=== PATIENT | male | born 1985 | race Caucasian/White ===

== ENCOUNTER 2017-11-23 07:16 | Emergency (ER) | payer MEDICARE, MEDICAID ==
[~2017-11-23] VITALS: Ht 170.2 cm; Wt 75.0 kg
[~2017-11-23 07:16] MED LIST: ALBU8HFA PO; DIPH25CA83 PO; LORA-269 PO; OXCA600T5 PO
[2017-11-23 07:25] VITALS: BP 111/74
[2017-11-23 08:29] LABS: BASOPHILS % (AUTO) 0.3 % (0-1); EOSINOPHILS # (AUTO) 0.2 X10'3 (0-0.9); EOSINOPHILS % (AUTO) 1.4 % (0-6); HEMATOCRIT 37.6 % (42.0-52.0); HEMOGLOBIN 12.8 g/dl (14.0-17.9); LYMPHOCYTES # (AUTO) 2.1 X10'3 (1.1-4.8); LYMPHOCYTES % (AUTO) 17.7 % (21-51); MEAN CORPUSCULAR HEMOGLOBIN 29.6 PG (27.0-31.0); MEAN CORPUSCULAR VOLUME 87.2 FL (78-98); MEAN PLATELET VOLUME 7.2 FL (7.4-10.4); MONOCYTES # (AUTO) 0.7 X10'3 (0-0.9); MONOCYTES % (AUTO) 6.3 % (2-12); NEUTROPHILS # (AUTO) 8.7 X10'3 (1.8-7.7); NEUTROPHILS % (AUTO) 74.3 % (42-75); PLATELET COUNT 406 X10'3 (140-440); RED BLOOD COUNT 4.31 X10'6 (4.70-6.10); RED CELL DISTRIBUTION WIDTH 14.7 % (11.5-14.5); WHITE BLOOD COUNT 11.8 X10'3 (4.5-11.0)
[2017-11-23 08:43] LABS: ALANINE AMINOTRANSFERASE 63 U/L (12-78); ALBUMIN 3.4 G/DL (3.4-5.0); ALKALINE PHOSPHATASE 62 IU/L (46-116); ANION GAP 4 (8-16); ASPARTATE AMINO TRANSFERASE 34 U/L (10-37); BILIRUBIN,TOTAL 0.6 MG/DL (0.1-1.0); BLOOD UREA NITROGEN 22 MG/DL (7-18); BUN/CREATININE RATIO 22.2 (5.4-32.0); CALCIUM 8.4 MG/DL (8.5-10.1); CHLORIDE 110 MMOL/L (99-107); CREATININE 0.99 MG/DL (0.60-1.10); GLUCOSE 89 MG/DL (70-104); POTASSIUM 3.6 MMOL/L (3.5-5.1); SODIUM 142 MMOL/L (135-145); TOTAL CARBON DIOXIDE 28.4 MMOL/L (24-32); TOTAL PROTEIN 6.8 G/DL (6.4-8.2); eGFR 87 ML/MIN
[2017-11-23 08:52] LABS: ETHANOL < 0.010 GM/DL (0.0-0.010)
== END 2017-11-23 08:38 | disposition left against medical advice (07) ==
LOC: ER 07:16
DX: F99 Mental disorder, not otherwise specified (principal); F20.9 Schizophrenia, unspecified; F41.9 Anxiety disorder, unspecified; F29 Unspecified psychosis not due to a substance or known physiological condition; R45.851 Suicidal ideations; J45.909 Unspecified asthma, uncomplicated; F15.10 Other stimulant abuse, uncomplicated; Z56.0 Unemployment, unspecified; Z59.0 Homelessness; Z79.899 Other long term (current) drug therapy
CPT/HCPCS: 36415; 80053; 80320; 84443; 85025; 99284

== ENCOUNTER 2018-01-16 08:02 | Emergency (ER) | payer MEDICARE, MEDICAID ==
[~2018-01-16] VITALS: Ht 1703 cm; Wt 77.3 kg
[2018-01-16] MEDS ORDERED: LORazepam 2 mg/ml vial IM ONE (08:05)
[2018-01-16] MEDS ORDERED: haloperidol lactate 5mg/ml inj IM ONE (08:05)
[2018-01-16] MEDS ORDERED: diphenhydrAMINE 50 mg/ml inj IM ONE (08:05)
[2018-01-16 08:32] LABS: BASOPHILS % (AUTO) 0.2 % (0-1); EOSINOPHILS # (AUTO) 0.5 X10'3 (0-0.9); EOSINOPHILS % (AUTO) 3.9 % (0-6); HEMATOCRIT 39.3 % (42.0-52.0); HEMOGLOBIN 13.5 g/dl (14.0-17.9); LYMPHOCYTES # (AUTO) 3.1 X10'3 (1.1-4.8); LYMPHOCYTES % (AUTO) 25.8 % (21-51); MEAN CORPUSCULAR HEMOGLOBIN 29.8 PG (27.0-31.0); MEAN CORPUSCULAR HGB CONC 34.5 % (33.0-36.5); MEAN CORPUSCULAR VOLUME 86.4 FL (78-98); MEAN PLATELET VOLUME 6.7 FL (7.4-10.4); MONOCYTES # (AUTO) 0.9 X10'3 (0-0.9); MONOCYTES % (AUTO) 7.5 % (2-12); NEUTROPHILS # (AUTO) 7.6 X10'3 (1.8-7.7); NEUTROPHILS % (AUTO) 62.6 % (42-75); PLATELET COUNT 653 X10'3 (140-440); RED BLOOD COUNT 4.55 X10'6 (4.70-6.10); RED CELL DISTRIBUTION WIDTH 13.9 % (11.5-14.5); WHITE BLOOD COUNT 12.2 X10'3 (4.5-11.0)
[2018-01-16 08:47] LABS: ALANINE AMINOTRANSFERASE 42 U/L (12-78); ALBUMIN/GLOBULIN RATIO 0.7 (1.1-1.5); ALKALINE PHOSPHATASE 72 IU/L (46-116); ANION GAP 7 (8-16); ASPARTATE AMINO TRANSFERASE 22 U/L (10-37); BILIRUBIN,TOTAL 0.3 MG/DL (0.1-1.0); BLOOD UREA NITROGEN 14 MG/DL (7-18); CALCIUM 8.5 MG/DL (8.5-10.1); CHLORIDE 108 MMOL/L (99-107); CREATININE 1.08 MG/DL (0.60-1.10); GLUCOSE 97 MG/DL (70-104); POTASSIUM 3.6 MMOL/L (3.5-5.1); SODIUM 142 MMOL/L (135-145); TOTAL CARBON DIOXIDE 27.1 MMOL/L (24-32); TOTAL PROTEIN 7.1 G/DL (6.4-8.2); eGFR 78 ML/MIN
[2018-01-16 08:56] LABS: ETHANOL < 0.010 GM/DL (0.0-0.010)
[2018-01-16] MEDS ORDERED: QUET200T3 PO (09:17)
[2018-01-16] MEDS ORDERED: QUET50TA15 PO (09:17)
[2018-01-16] MEDS ORDERED: diphenhydrAMINE 25mg capsule PO PRN (09:25)
[2018-01-16] MEDS ORDERED: albuterol 2.5 MG/3 ML nebule NEB PRN (09:35)
[2018-01-16] MEDS: oxcarbazepine 150mg tablet PO SCH ×2 (10:00→21:22)
[2018-01-16] MEDS: QUETIAPINE 50 MG TAB.SR.24H PO SCH (10:00)
[2018-01-16 10:15] LABS: URINE AMPHETAMINE SCREEN POSITIVE (Neg); URINE BARBITUATE SCREEN NEGATIVE (Neg); URINE BENZODIAZEPINES SCREEN NEGATIVE (Neg); URINE CANNABINOID SCREEN NEGATIVE (Neg); URINE COCAINE SCREEN NEGATIVE (Neg); URINE METHADONE SCREEN NEGATIVE (Neg); URINE OPIATE SCREEN NEGATIVE (Neg); URINE PHENCYCLIDINE SCREEN NEGATIVE (Neg)
[2018-01-16 17:31] LABS: CLARITY,URINE SLIGHTLY CLOUDY (Clear); COLOR,URINE YELLOW (Yellow); GLUCOSE, URINE NEGATIVE (Neg); KETONES,URINE NEGATIVE (Neg); LEUKOCYTE ESTERASE ,URINE NEGATIVE (Neg); NITRITES, URINE NEGATIVE (Neg); OCCULT BLOOD,URINE NEGATIVE (Neg); PH,URINE 6.5 (4.8-8.0); PROTEIN,URINE TRACE mg/dl (Neg); UROBILINOGEN,URINE 0.2 E.U/dL (0.2-1.0)
[2018-01-16 17:42] LABS: UA COLLECTION TYPE VOIDED
[2018-01-16 17:45] LABS: BACTERIA,URINE NONE SEEN /HPF (Neg); MUCUS STRANDS MANY /LPF (Neg); RBC,URINE NONE SEEN /HPF (0-2); SPERM MANY /HPF (NEGATIVE); SQUAMOUS EPITHELIAL CELL,UR FEW /LPF (FEW)
[2018-01-16] MEDS: QUETIAPINE 200 MG TAB.SR.24H PO SCH (21:22)
[2018-01-16] MEDS: LORazepam 1 MG tablet PO PRN (21:22)
[2018-01-17] MEDS ORDERED: OLANZapine 2.5MG tablet PO ONE (06:45)
[2018-01-17] MEDS: oxcarbazepine 150mg tablet PO SCH ×2 (08:00→20:35)
[2018-01-17] MEDS: LORazepam 1 MG tablet PO PRN (11:30)
[2018-01-17] MEDS: QUETIAPINE 50 MG TAB.SR.24H PO SCH (11:51)
[2018-01-17] MEDS: QUETIAPINE 200 MG TAB.SR.24H PO SCH (20:35)
[2018-01-18] MEDS: oxcarbazepine 150mg tablet PO SCH (08:00)
[2018-01-18] MEDS: QUETIAPINE 50 MG TAB.SR.24H PO SCH (08:00)
[2018-01-18 18:02] VITALS: BP 128/71
== END 2018-01-18 18:41 ==
LOC: ER 08:02
DX: F31.9 Bipolar disorder, unspecified (principal); F20.9 Schizophrenia, unspecified; F15.10 Other stimulant abuse, uncomplicated; J45.909 Unspecified asthma, uncomplicated; F41.9 Anxiety disorder, unspecified
CPT/HCPCS: 36415; 80053; 80305; 80320; 81001; 84443; 85025; 96372; 99285; J1200; J1630; J2060; Q0163

== ENCOUNTER 2018-02-02 02:51 | Emergency (ER) | payer MEDICARE, MEDICAID ==
[~2018-02-02 02:51] MED LIST changes: +QUET200T3 PO; +QUET50TA15 PO
== END 2018-02-02 04:12 | disposition left against medical advice (07) ==
LOC: ER 02:52
DX: R11.10 Vomiting, unspecified (principal); F41.9 Anxiety disorder, unspecified; Z53.21 Procedure and treatment not carried out due to patient leaving prior to being seen by health care provider

== ENCOUNTER 2023-06-17 04:13 | Emergency (ER) | payer MEDICARE, MEDICAID ==
[~2023-06-17] VITALS: Ht 180.3 cm; Wt 78.2 kg
[~2023-06-17 04:13] MED LIST changes: -ALBU8HFA PO; +CLON0.1T2 PO; -DIPH25CA83 PO; -LORA-269 PO; -OXCA600T5 PO; -QUET200T3 PO; -QUET50TA15 PO
[2023-06-17 04:21] VITALS: PULSE 59; RESP 18; TEMP 98.2; O2SAT 98
== END 2023-06-17 05:46 | disposition left against medical advice (07) ==
LOC: ER 04:14
DX: R46.2 Strange and inexplicable behavior (principal); Z53.21 Procedure and treatment not carried out due to patient leaving prior to being seen by health care provider
CPT/HCPCS: 99281

== ENCOUNTER 2023-06-20 09:06 | Emergency (ER) | payer MEDICARE, MEDICAID ==
[2023-06-21] MEDS ORDERED: ZIPR20CA12 PO (11:51)
== END 2023-06-20 11:14 | disposition left against medical advice (07) ==
LOC: ER 09:07
DX: Z04.6 Encounter for general psychiatric examination, requested by authority (principal); Z53.21 Procedure and treatment not carried out due to patient leaving prior to being seen by health care provider

== ENCOUNTER 2023-06-21 04:32 | Emergency (ER) | payer MEDICARE, MEDICAID ==
[~2023-06-21] VITALS: Ht 180.3 cm; Wt 72.7 kg
[2023-06-21] MEDS: diphenhydrAMINE 50 mg/ml inj IM ONE (05:46)
[2023-06-21] MEDS: LORazepam 2 mg/ml vial IM ONE (05:46)
[2023-06-21] MEDS: haloperidol lactate 5mg/ml inj IM ONE (05:46)
[2023-06-21 06:13] LABS: ALANINE AMINOTRANSFERASE 132 U/L (12-78); ALBUMIN 3.6 G/DL (3.4-5.0); ALBUMIN/GLOBULIN RATIO 1.1 (1.1-1.5); ALKALINE PHOSPHATASE 49 IU/L (46-116); ANION GAP 13 (8-16); ASPARTATE AMINO TRANSFERASE 70 U/L (10-37); BILIRUBIN,TOTAL 1.2 MG/DL (0.1-1.0); BLOOD UREA NITROGEN 18 MG/DL (7-18); BUN/CREATININE RATIO 20.7 (10.0-20.0); CALCIUM 8.5 MG/DL (8.5-10.1); CHLORIDE 105 MMOL/L (99-107); CREATININE 0.87 MG/DL (0.60-1.10); GLUCOSE 77 MG/DL (70-104); POTASSIUM 3.7 MMOL/L (3.5-5.1); SODIUM 141 MMOL/L (135-145); TOTAL CARBON DIOXIDE 23.4 MMOL/L (24-32); TOTAL PROTEIN 6.8 G/DL (6.4-8.2); eCRCL 117 ML/MIN; eGFR > 90 ML/MIN
[2023-06-21 06:17] LABS: BASOPHILS % (AUTO) 0.3 % (0-1); EOSINOPHILS % (AUTO) 0.2 % (0-6); HEMATOCRIT 38.7 % (42.0-52.0); HEMOGLOBIN 13.1 g/dl (14.0-17.9); LYMPHOCYTES # (AUTO) 1.1 X10'3 (1.1-4.8); MEAN CORPUSCULAR HEMOGLOBIN 29.1 PG (27.0-31.0); MEAN CORPUSCULAR HGB CONC 33.8 g/dL (33.0-36.5); MEAN CORPUSCULAR VOLUME 86.2 FL (78-98); MEAN PLATELET VOLUME 7.8 FL (7.4-10.4); MONOCYTES # (AUTO) 0.7 X10'3 (0-0.9); MONOCYTES % (AUTO) 7.2 % (2-12); NEUTROPHILS # (AUTO) 8.4 X10'3 (1.8-7.7); NEUTROPHILS % (AUTO) 81.3 % (42-75); PLATELET COUNT 514 X10'3 (140-440); RED BLOOD COUNT 4.49 X10'6 (4.70-6.10); RED CELL DISTRIBUTION WIDTH 14.1 % (11.5-14.5); WHITE BLOOD COUNT 10.3 X10'3 (4.5-11.0)
[2023-06-21 06:21] LABS: ETHANOL < 10 MG/DL (<10); THYROID STIMULATING HORMONE 0.67 ulU/ml (0.34-4.50)
[2023-06-21] MEDS: ziprasidone IM 20mg inj **IM only IM ONE (09:01)
[2023-06-21] MEDS ORDERED: ZIPR20CA12 PO (11:51)
[2023-06-21 17:59] LABS: BILIRUBIN,URINE SMALL (Neg); CLARITY,URINE CLEAR (Clear); COLOR,URINE YELLOW (Yellow); GLUCOSE, URINE NEGATIVE (Neg); KETONES,URINE 40 mg/dl (Neg); LEUKOCYTE ESTERASE ,URINE NEGATIVE (Neg); OCCULT BLOOD,URINE NEGATIVE (Neg); PROTEIN,URINE NEGATIVE (Neg); UROBILINOGEN,URINE 0.2 E.U/dL (0.2-1.0)
[2023-06-21 18:04] LABS: UA COLLECTION TYPE VOIDED
[2023-06-21 18:06] LABS: NITRITES, URINE NEGATIVE (Neg)
[2023-06-21 18:19] LABS: URINE AMPHETAMINE SCREEN POSITIVE (Neg); URINE BARBITUATE SCREEN NEGATIVE (Neg); URINE BENZODIAZEPINES SCREEN NEGATIVE (Neg); URINE CANNABINOID SCREEN POSITIVE (Neg); URINE COCAINE SCREEN NEGATIVE (Neg); URINE METHADONE SCREEN NEGATIVE (Neg); URINE OPIATE SCREEN NEGATIVE (Neg); URINE PHENCYCLIDINE SCREEN NEGATIVE (Neg)
[2023-06-21] MEDS: ziprasidone 20mg capsule PO SCH (20:00)
[2023-06-21] MEDS: cloNIDine 0.1 mg tablet PO SCH (21:00)
[2023-06-22] MEDS: LORazepam 1 MG tablet PO ONE (01:36)
[2023-06-22 06:19] VITALS: PULSE 108; TEMP 97.8
[2023-06-22 13:42] VITALS: BP 118/68; RESP 16; O2SAT 97
== END 2023-06-22 13:50 | disposition still patient (30) ==
LOC: ER 04:33
DX: F29 Unspecified psychosis not due to a substance or known physiological condition (principal); Z20.822 Contact with and (suspected) exposure to COVID-19; J45.909 Unspecified asthma, uncomplicated; F15.90 Other stimulant use, unspecified, uncomplicated; Z79.899 Other long term (current) drug therapy
CPT/HCPCS: 36415; 80053; 80305; 80320; 81003; 84443; 85025; 87811; 96372; 99285; J1200; J1630; J2060; J3486

== ENCOUNTER 2023-07-03 01:26 | Emergency (ER) | payer MEDICARE, MEDICAID ==
[~2023-07-03] VITALS: Ht 172.7 cm; Wt 72.7 kg
[~2023-07-03 01:26] MED LIST changes: +ZIPR20CA12 PO
[2023-07-03] MEDS: olanzapine 10mg tablet PO STA (01:59)
[2023-07-03] MEDS: diphenhydrAMINE 50 mg/ml inj IM ONE (03:33)
[2023-07-03] MEDS: LORazepam 2 mg/ml vial IM ONE (03:33)
[2023-07-03 04:20] LABS: URINE AMPHETAMINE SCREEN POSITIVE (Neg); URINE BARBITUATE SCREEN NEGATIVE (Neg); URINE BENZODIAZEPINES SCREEN NEGATIVE (Neg); URINE CANNABINOID SCREEN NEGATIVE (Neg); URINE COCAINE SCREEN NEGATIVE (Neg); URINE METHADONE SCREEN NEGATIVE (Neg); URINE OPIATE SCREEN NEGATIVE (Neg); URINE PHENCYCLIDINE SCREEN NEGATIVE (Neg)
[2023-07-03 04:31] LABS: BASOPHILS % (AUTO) 0.2 % (0-1); EOSINOPHILS % (AUTO) 0.2 % (0-6); HEMATOCRIT 39.6 % (42.0-52.0); HEMOGLOBIN 13.2 g/dl (14.0-17.9); LYMPHOCYTES % (AUTO) 9.5 % (21-51); MEAN CORPUSCULAR HEMOGLOBIN 28.9 PG (27.0-31.0); MEAN CORPUSCULAR HGB CONC 33.3 g/dL (33.0-36.5); MEAN CORPUSCULAR VOLUME 86.9 FL (78-98); MEAN PLATELET VOLUME 7.3 FL (7.4-10.4); MONOCYTES # (AUTO) 0.9 X10'3 (0-0.9); MONOCYTES % (AUTO) 7.8 % (2-12); NEUTROPHILS % (AUTO) 82.3 % (42-75); PLATELET COUNT 367 X10'3 (140-440); RED BLOOD COUNT 4.55 X10'6 (4.70-6.10); RED CELL DISTRIBUTION WIDTH 14.4 % (11.5-14.5); WHITE BLOOD COUNT 10.9 X10'3 (4.5-11.0)
[2023-07-03 04:46] LABS: ALBUMIN 3.2 G/DL (3.4-5.0); ANION GAP 13 (8-16); BLOOD UREA NITROGEN 11 MG/DL (7-18); BUN/CREATININE RATIO 9.3 (10.0-20.0); CALCIUM 8.3 MG/DL (8.5-10.1); CHLORIDE 103 MMOL/L (99-107); CREATININE 1.18 MG/DL (0.60-1.10); GLUCOSE 97 MG/DL (70-104); SODIUM 139 MMOL/L (135-145); TOTAL CARBON DIOXIDE 23.3 MMOL/L (24-32); eCRCL 81 ML/MIN; eGFR 69 ML/MIN
[2023-07-03 04:49] LABS: ETHANOL < 10 MG/DL (<10)
[2023-07-03] MEDS: potassium Cl 20 mEq SR tablet PO STA (07:12)
[2023-07-03] MEDS: ziprasidone 20mg capsule PO SCH (09:46)
[2023-07-03 15:51] LABS: BILIRUBIN,URINE NEGATIVE (Neg); CLARITY,URINE CLOUDY (Clear); COLOR,URINE YELLOW (Yellow); GLUCOSE, URINE NEGATIVE (Neg); KETONES,URINE TRACE mg/dl (Neg); LEUKOCYTE ESTERASE ,URINE NEGATIVE (Neg); NITRITES, URINE NEGATIVE (Neg); OCCULT BLOOD,URINE TRACE-INTACT (Neg); PROTEIN,URINE 100 mg/dl (Neg); UROBILINOGEN,URINE 0.2 E.U/dL (0.2-1.0)
[2023-07-03 16:02] LABS: UA COLLECTION TYPE URINAL
[2023-07-03 16:03] LABS: HYALINE CASTS >30 /LPF (NEGATIVE); MUCUS STRANDS MODERATE /LPF (Neg)
[2023-07-03 16:04] LABS: SPERM MANY /HPF (NEGATIVE)
[2023-07-03 16:06] LABS: WBC,URINE 20-30 /HPF (0-4)
[2023-07-03 16:08] LABS: RBC,URINE 20-50 /HPF (0-2)
[2023-07-03 16:09] LABS: BACTERIA,URINE 1+ /HPF (Neg); SQUAMOUS EPITHELIAL CELL,UR FEW /LPF (FEW)
[2023-07-03] MEDS: cloNIDine 0.1 mg tablet PO SCH (20:34)
[2023-07-03] MEDS ORDERED: OLANZapine 5mg rapidly disint. tablet PO ONE (21:25)
[2023-07-03] MEDS: OLANZapine 5mg rapidly disint. tablet PO ONE (21:46)
[2023-07-04] MEDS: LORazepam 1 MG tablet PO PRN (07:41)
[2023-07-06 05:54] VITALS: BP 110/63; PULSE 74; TEMP 97.3; O2SAT 99
[2023-07-06 08:00] VITALS: RESP 16
[2023-07-06] MEDS: OLANZAPINE 5 MG TABLET PO SCH (08:09)
[2023-07-06] MEDS ORDERED: OLAN5TAB3 PO (13:15)
== END 2023-07-06 13:55 | disposition home or self-care (01) ==
LOC: ER 01:27
DX: F15.10 Other stimulant abuse, uncomplicated (principal); Z20.822 Contact with and (suspected) exposure to COVID-19; E87.6 Hypokalemia
CPT/HCPCS: 36415; 80048; 80305; 80320; 81001; 84132; 85025; 87811; 96372; 99285; J1200; J2060

== ENCOUNTER 2023-07-07 03:53 | Emergency (ER) | payer MEDICARE, MEDICAID ==
[~2023-07-07] VITALS: Ht 180.3 cm; Wt 65.0 kg
[~2023-07-07 03:53] MED LIST changes: +OLAN5TAB3 PO
[2023-07-07 04:05] VITALS: BP 123/71; PULSE 115; RESP 18; TEMP 98.4; O2SAT 99
[2023-07-07] MEDS: LORazepam 1 MG tablet PO ONE (05:01)
[2023-07-07] MEDS ORDERED: olanzapine 10mg tablet PO SCH (08:00)
== END 2023-07-07 05:03 | disposition home or self-care (01) ==
LOC: ER 03:53
DX: F20.9 Schizophrenia, unspecified (principal); Z76.0 Encounter for issue of repeat prescription; F31.9 Bipolar disorder, unspecified; J45.909 Unspecified asthma, uncomplicated; F15.10 Other stimulant abuse, uncomplicated; Z59.00 Homelessness unspecified; Z88.8 Allergy status to other drugs, medicaments and biological substances; Z79.899 Other long term (current) drug therapy
CPT/HCPCS: 99283

== ENCOUNTER 2023-07-13 08:38 | Emergency (ER) | payer MEDICARE, MEDICAID ==
[~2023-07-13] VITALS: Ht 182.9 cm; Wt 65.2 kg
== END 2023-07-13 12:04 | disposition home or self-care (01) ==
LOC: ER 08:39
DX: M79.672 Pain in left foot (principal); M79.671 Pain in right foot; J45.909 Unspecified asthma, uncomplicated; F41.9 Anxiety disorder, unspecified; F20.9 Schizophrenia, unspecified; F15.90 Other stimulant use, unspecified, uncomplicated; Z88.8 Allergy status to other drugs, medicaments and biological substances; Z79.899 Other long term (current) drug therapy; Z59.00 Homelessness unspecified; Z56.0 Unemployment, unspecified; Z72.89 Other problems related to lifestyle
CPT/HCPCS: 73630; 99283

== ENCOUNTER 2023-07-13 21:36 | Emergency (ER) | payer MEDICARE, MEDICAID ==
[~2023-07-13] VITALS: Ht 177.8 cm; Wt 68.2 kg
[2023-07-13 21:46] VITALS: BP 123/65; PULSE 109; RESP 16; O2SAT 97
== END 2023-07-13 22:29 | disposition home or self-care (01) ==
LOC: ER 21:37
DX: S00.83XA Contusion of other part of head, initial encounter (principal); F15.10 Other stimulant abuse, uncomplicated; J45.909 Unspecified asthma, uncomplicated; F41.9 Anxiety disorder, unspecified; F20.9 Schizophrenia, unspecified; Z59.00 Homelessness unspecified; Z56.0 Unemployment, unspecified; Z79.899 Other long term (current) drug therapy; Z88.8 Allergy status to other drugs, medicaments and biological substances; W19.XXXA Unspecified fall, initial encounter; Y93.89 Activity, other specified; Y92.89 Other specified places as the place of occurrence of the external cause; Y99.8 Other external cause status
CPT/HCPCS: 99283

== ENCOUNTER 2023-08-01 00:43 | Emergency (ER) | payer MEDICARE, MEDICAID ==
[~2023-08-01] VITALS: Ht 182.9 cm; Wt 64.5 kg
[2023-08-01 00:48] VITALS: BP 115/71; PULSE 109; RESP 16; TEMP 98; O2SAT 96
== END 2023-08-01 02:29 | disposition left against medical advice (07) ==
LOC: ER 00:44
DX: G47.00 Insomnia, unspecified (principal); F41.9 Anxiety disorder, unspecified; Z53.21 Procedure and treatment not carried out due to patient leaving prior to being seen by health care provider
CPT/HCPCS: 99281

== ENCOUNTER 2023-08-29 01:21 | Emergency (ER) | payer MEDICARE, MEDICAID ==
[~2023-08-29] VITALS: Ht 182.9 cm; Wt 68.2 kg
[2023-08-29 01:26] VITALS: BP 126/73; PULSE 123; RESP 19; TEMP 97.5; O2SAT 98
== END 2023-08-29 02:01 | disposition left against medical advice (07) ==
LOC: ER 01:22
DX: Z76.0 Encounter for issue of repeat prescription (principal); F41.9 Anxiety disorder, unspecified; Z53.21 Procedure and treatment not carried out due to patient leaving prior to being seen by health care provider
CPT/HCPCS: 99281

== ENCOUNTER 2023-08-29 02:39 | Emergency (ER) | payer MEDICARE, MEDICAID ==
[~2023-08-29] VITALS: Ht 180.3 cm; Wt 65.0 kg
[2023-08-29 03:53] VITALS: BP 130/83; PULSE 128; RESP 17; TEMP 98.5; O2SAT 100
== END 2023-08-29 05:26 | disposition left against medical advice (07) ==
LOC: ER 02:40
DX: Z76.0 Encounter for issue of repeat prescription (principal); Z53.21 Procedure and treatment not carried out due to patient leaving prior to being seen by health care provider
CPT/HCPCS: 99281

== ENCOUNTER 2023-09-07 05:47 | Emergency (ER) | payer MEDICARE, MEDICAID | END 2023-09-07 06:01 | disposition left against medical advice (07) | LOC: ER 05:47 | DX: F20.9 Schizophrenia, unspecified (principal); Z76.0 Encounter for issue of repeat prescription ==

== ENCOUNTER 2024-05-17 07:18 | Emergency (ER) | payer MEDICARE, MEDICAID ==
[~2024-05-17] VITALS: Ht 172.7 cm; Wt 63.6 kg
== END 2024-05-17 07:52 | disposition home or self-care (01) ==
LOC: ER 07:19
DX: Z00.8 Encounter for other general examination (principal); F41.9 Anxiety disorder, unspecified; F29 Unspecified psychosis not due to a substance or known physiological condition; J45.909 Unspecified asthma, uncomplicated; F20.9 Schizophrenia, unspecified; F15.90 Other stimulant use, unspecified, uncomplicated; Z59.00 Homelessness unspecified; Z56.0 Unemployment, unspecified; Z72.89 Other problems related to lifestyle; Z88.8 Allergy status to other drugs, medicaments and biological substances; Z79.899 Other long term (current) drug therapy
CPT/HCPCS: 99281

== ENCOUNTER 2024-05-17 22:10 | Emergency (ER) | payer MEDICARE, MEDICAID ==
[~2024-05-17] VITALS: Ht 180.3 cm; Wt 55.6 kg
[2024-05-17 22:11] VITALS: BP 115/72; PULSE 106; RESP 18; O2SAT 97
[2024-05-17] MEDS ORDERED: diphenhydrAMINE 25mg capsule PO ONE (22:55)
[2024-05-17] MEDS ORDERED: LORazepam 2 mg/ml vial IM ONE (22:55)
[2024-05-17 23:19] VITALS: TEMP 98.6
== END 2024-05-17 23:25 | disposition home or self-care (01) ==
LOC: ER 22:11
DX: F15.10 Other stimulant abuse, uncomplicated (principal); J45.909 Unspecified asthma, uncomplicated; F41.9 Anxiety disorder, unspecified; F20.9 Schizophrenia, unspecified; Z72.89 Other problems related to lifestyle; Z59.00 Homelessness unspecified; Z56.0 Unemployment, unspecified
CPT/HCPCS: 99281

== ENCOUNTER 2025-01-03 04:03 | Emergency (ER) | payer MEDICAID, MEDICARE ==
[~2025-01-03] VITALS: Ht 180.3 cm; Wt 48.1 kg
[2025-01-03 04:09] VITALS: BP 146/65; PULSE 102; RESP 17; TEMP 93.6; O2SAT 99
== END 2025-01-03 05:11 | disposition left against medical advice (07) ==
LOC: ER 04:04
DX: L02.512 Cutaneous abscess of left hand (principal); Z88.8 Allergy status to other drugs, medicaments and biological substances; Z53.21 Procedure and treatment not carried out due to patient leaving prior to being seen by health care provider